=== PATIENT | female | born 1995 | race African-American/Black ===

== ENCOUNTER 2017-01-08 23:29 | Emergency (ER) | payer OTHER ==
[2017-01-09] MEDS ORDERED: IPRATROPIUM/ALBUTEROL 0.5-2.5 MG/3 ML AMPUL NEB ONE (02:36)
[2017-01-09] MEDS ORDERED: PREDNISONE 20 MG TABLET PO ONE (02:36)
--- NOTE | 2017-01-09 02:38 | ER Document Report ---
ED Respiratory Problem - General Chief Complaint: Cold Symptoms Stated Complaint: COLD LIKE SYMPTOMS Mode of Arrival: Ambulatory Information source: Patient TRAVEL OUTSIDE OF THE [place] IN LAST 30 DAYS: No - HPI Patient complains to provider of: Cough Notes: Patient arrives with complaints of runny nose, nasal congestion and cough for the last few days. She states that today she felt like she was wheezing. She denies any fever. She denies any lung history. She denies smoking. She has a history of seizures and is on Tegretol. She's had no seizure activity. She denies any nausea, vomiting, diarrhea. No chest pain or difficulty breathing. No rash. Nothing makes her symptoms better or worse. She has no other complaints at this time. - Related Data Allergies/Adverse Reactions: No Known Allergies Allergy (Unverified 01/08/17 23:34) Past Medical History - Social History Smoking Status: Unknown if Ever Smoked Family History: Reviewed & Not Pertinent Patient has suicidal ideation: No Patient has homicidal ideation: No Renal/ Medical History: Denies: Hx Peritoneal Dialysis Review of Systems - Review of Systems -: Yes All other systems reviewed and negative Physical Exam - Vital signs Vitals: Temp Pulse Resp BP Pulse Ox 98.5 F 110 H 15 129/79 H 100 01/08/17 23:34 01/08/17 23:34 01/08/17 23:34 01/08/17 23:34 01/08/17 23:34 - Notes Notes: GENERAL: alert, cooperative, nontoxic, no distress. HEAD: normocephalic, atraumatic EYES: conjunctiva pink without discharge, no external redness or swelling. EARS: no external swelling, no external redness, no mastoid redness, swelling, tenderness. Ear canals are clear without swelling or drainage. TMs pearly nichole , no redness, no bulging, normal landmarks, no perforation. NOSE: atraumatic, no external swelling. clear rhinorrhea noted. MOUTH/THROAT: mucous membranes moist and pink, posterior pharynx without erythema, swelling, exudate. No trismus or drooling. NECK: soft, supple, full range of motion, no meningismus. CHEST: no distress, expiratory wheezes noted throughout. Good air movement. No crackles. CARDIAC: regular rate and rhythm, no murmur, normal capillary refill, normal pulses. No peripheral edema noted. BACK: full range of motion, no CVA tenderness. EXTREMITIES: full range of motion of all extremities. No redness, no swelling. NEURO: alert and oriented 3, no focal deficits, full range of motion of all extremities. PYSCH: appropriate mood, affect. Patient is cooperative. SKIN: pink, warm, dry, no rash. Course - Re-evaluation Re-evalutation: 01/09/17 03:36 Patient states she is feeling significantly better after breathing treatments. Lung sounds improved. Patient likely has bronchitis. She'll be discharged home with prednisone, Tessalon, albuterol. Follow up if not better in the next 3-5 days, sooner for chest pain, difficult breathing, high fever, or any further concerns. The patient is noted to have elevated blood pressure during today's emergency department visit. The patient was informed of this finding. The patient was instructed that this may be related to pre-hypertension and requires further evaluation with a primary care provider. The patient has no hypertensive symptoms at this time. The patient's emergency department workup and current diagnosis were explained to the patient and or family. Follow-up instructions were provided. Medications if prescribed were discussed. Instructions for when to return to the emergency department including specific worrisome symptoms were discussed with the patient and/or family. - Vital Signs Vital signs: Temp Pulse Resp BP Pulse Ox 98.5 F 110 H 15 129/79 H 100 01/08/17 23:34 01/08/17 23:34 01/08/17 23:34 01/08/17 23:34 01/08/17 23:34 Discharge - Discharge Clinical Impression: Bronchitis Condition: Stable Disposition: HOME, SELF-CARE Instructions: Bronchitis ([facility]) Additional Instructions: Take medications as prescribed. Drink plenty of fluids. Follow-up with not better in 3-5 days, sooner for chest pain, difficulty breathing, high fever, or any further concerns. Your blood pressure was elevated during today's visit. Have this rechecked with your doctor. Prescriptions: Benzonatate [Tessalon Perle 100 mg Capsule] 100 mg PO Q8HP PRN #20 cap PRN Reason: Albuterol Sulfate [Proair HFA Inhalation Aerosol 8.5 gm MDI] 2 puff IH Q4 PRN # 1 mdi PRN Reason: Prednisone 60 mg PO DAILY #15 tablet Forms: Elevated Blood Pressure
[2017-01-09 03:55] VITALS: BP 112/65
== END 2017-01-09 03:58 | disposition home or self-care (01) ==
LOC: ER 23:29
DX: J40 Bronchitis, not specified as acute or chronic (principal); R03.0 Elevated blood-pressure reading, without diagnosis of hypertension
CPT/HCPCS: 94640; 99283; J7512; J7620

== ENCOUNTER 2018-07-29 14:31 | Emergency (ER) | payer BC, OTHER ==
[2018-07-29 14:38] VITALS: BP 127/59
--- NOTE | 2018-07-29 16:38 | ER Document Report ---
HPI - HPI Pain Level: Denies Notes: Patient is a 23-year-old female who presents for chief complaint of medication refill request. She needs to creams refilled that she takes for her eczema as well as one medication for her seizure disorder. Patient reports that she has a appointment scheduled with a new primary care provider for a few weeks from now. - CONSTITUTIONAL Constitutional: DENIES: Fever, Chills - EENT EENT: DENIES: Sore Throat, Ear Pain, Eye problems - NEURO Neurology: DENIES: Headache, Weakness, Vision blurred, Dizzinesss / Vertigo - CARDIOVASCULAR Cardiovascular: DENIES: Chest pain - RESPIRATORY Respiratory: DENIES: Trouble Breathing, Coughing - GASTROINTESTINAL Gastrointestinal: DENIES: Abdominal Pain, Black / Bloody Stools - MUSCULOSKELETAL Musculoskeletal: DENIES: Extremity pain Past Medical History - General Information source: Patient - Social History Smoking Status: Never Smoker Chew tobacco use (# tins/day): No Frequency of alcohol use: None Drug Abuse: None Family History: Reviewed & Not Pertinent Patient has suicidal ideation: No Patient has homicidal ideation: No - Medical History Medical History: Negative Renal/ Medical History: Denies: Hx Peritoneal Dialysis Surgical Hx: Negative - Immunizations Hx Diphtheria, Pertussis, Tetanus Vaccination: Yes Vertical Provider Document - CONSTITUTIONAL Notes: PHYSICAL EXAMINATION: GENERAL: Well-appearing, well-nourished and in no acute distress. HEAD: Atraumatic, normocephalic. EYES: Pupils equal round extraocular movements intact, conjunctiva are normal. ENT: Nares patent NECK: Normal range of motion LUNGS: No respiratory distress Musculoskeletal: Normal range of motion NEUROLOGICAL: Normal speech, normal gait. PSYCH: Normal mood, normal affect. SKIN: Warm, Dry, normal turgor, no rashes or lesions noted. - INFECTION CONTROL TRAVEL OUTSIDE OF THE [place] IN LAST 30 DAYS: No Course - Re-evaluation Re-evalutation: Medications refilled as per request. - Vital Signs Vital signs: Temp Pulse Resp BP Pulse Ox 97.9 F 85 20 127/59 H 100 07/29/18 14:37 07/29/18 14:37 07/29/18 14:37 07/29/18 14:37 07/29/18 14:37 Discharge - Discharge Clinical Impression: Medication refill Condition: Stable Disposition: HOME, SELF-CARE Additional Instructions: Your medications were refilled today. Please take medications exactly as prescribed. Keep the appointment you have to establish care with your new primary care provider. Prescriptions: Betamet Diprop/Prop Gly [Betamethasone Dp Aug 0.05% Ointment] 1 applic TP DAILY PRN #1 tube PRN Reason: Carbamazepine [Carbamazepine ER] 200 mg PO BID 30 Days #60 cpmp.12hr Triamcinolone Acetonide [Triderm] 454 gm TP DAILY #454 gm Referrals: ELIZABETH LACKEY PA-C [Primary Care Provider] - Follow up as needed
== END 2018-07-29 16:55 | disposition home or self-care (01) ==
LOC: ER 14:31
DX: Z76.0 Encounter for issue of repeat prescription (principal); L30.9 Dermatitis, unspecified; G40.909 Epilepsy, unspecified, not intractable, without status epilepticus
CPT/HCPCS: 99282

== ENCOUNTER 2019-10-26 14:59 | Emergency (ER) | payer BC, MEDICAID ==
[2019-10-26 15:34] VITALS: BP 106/59
--- NOTE | 2019-10-26 16:16 | ER Document Report ---
ED Skin Rash/Insect Bite/Abscs - General Chief Complaint: Skin Problem Stated Complaint: SKIN RASH Time Seen by Provider: 10/26/19 16:10 Primary Care Provider: ELIZABETH LACKEY PA-C [Primary Care Provider] - Follow up in 3-5 days Mode of Arrival: Ambulatory Information source: Patient Notes: 24-year-old female presented to ED for exacerbation of eczema. She states she has been to her doctor multiple times and has not referred her to dermatology as requested. She states the rash is much worse than her normal eczema. Her mother states that one time before when he got this bad the feltmaker and weigher in [place] gave her some Diflucan and it did help. I have discussed with mother that I will give the patient a dose of Diflucan and prednisone in the emergency room and give her a prescription for both for home use with 1 pill of Diflucan to take tomorrow. She has been instructed to follow-up with her primary care and find a feltmaker and weigher in [place] if she cannot get 1 in [place]. TRAVEL OUTSIDE OF THE [place] IN LAST 30 DAYS: No - HPI Patient complains to provider of: Skin rash/lesion Onset: Other Onset/Duration: Gradual - 2 weeks, Worse Quality of pain: Burning Severity: None Pain Level: 3 Skin Character: Erythema, Rash, Scales, Other - Thick scaly Quality of rash: Itchy, Painful Exacerbated by: Denies Relieved by: Denies Similar symptoms previously: Yes Recently seen / treated by doctor: Yes - Related Data Allergies/Adverse Reactions: No Known Allergies Allergy (Unverified 01/08/17 23:34) Past Medical History - General Information source: Patient - Social History Smoking Status: Never Smoker Cigarette use (# per day): No Smoking Education Provided: No Frequency of alcohol use: None Drug Abuse: None Lives with: Family Family History: Reviewed & Not Pertinent Patient has suicidal ideation: No Patient has homicidal ideation: No - Past Medical History Cardiac Medical History: Reports: None Pulmonary Medical History: Reports: Hx Asthma EENT Medical History: Reports: None Neurological Medical History: Reports: None Endocrine Medical History: Reports: None Renal/ Medical History: Reports: None Malignancy Medical History: Reports: None GI Medical History: Reports: None Musculoskeletal Medical History: Reports None Skin Medical History: Reports Hx Eczema Psychiatric Medical History: Reports: None Traumatic Medical History: Reports: None Infectious Medical History: Reports: None Surgical Hx: Negative Past Surgical History: Reports: None - Immunizations Immunizations up to date: Yes Hx Diphtheria, Pertussis, Tetanus Vaccination: Yes Review of Systems - Review of Systems Constitutional: No symptoms reported EENT: No symptoms reported Cardiovascular: No symptoms reported Respiratory: No symptoms reported Gastrointestinal: No symptoms reported Genitourinary: No symptoms reported Female Genitourinary: No symptoms reported Musculoskeletal: No symptoms reported Skin: Dryness, Rash Hematologic/Lymphatic: No symptoms reported Neurological/Psychological: No symptoms reported -: Yes All other systems reviewed and negative Physical Exam - Vital signs Vitals: Temp Pulse Resp BP Pulse Ox 97.9 F 109 H 13 106/59 L 96 10/26/19 15:33 10/26/19 15:10/26/19 15:10/26/19 15:10/26/19 15:33 Interpretation: Normal - General General appearance: Appears well, Alert - HEENT Head: Normocephalic, Atraumatic Eyes: Normal Pupils: PERRL - Respiratory Respiratory status: No respiratory distress Chest status: Nontender Breath sounds: Normal Chest palpation: Normal - Cardiovascular Rhythm: Regular Heart sounds: Normal auscultation Murmur: No - Abdominal Inspection: Normal Distension: No distension Bowel sounds: Normal Tenderness: Nontender Organomegaly: No organomegaly - Back Back: Normal, Nontender - Extremities General upper extremity: Normal inspection, Nontender, Normal color, Normal ROM, Normal temperature General lower extremity: Normal inspection, Nontender, Normal color, Normal ROM, Normal temperature, Normal weight bearing. No: Keo's sign - Neurological Neuro grossly intact: Yes Cognition: Normal Orientation: AAOx4 [place] Coma Scale Eye Opening: Spontaneous [place] Coma Scale Verbal: Oriented Calista Coma Scale Motor: Obeys Commands [place] Coma Scale Total: 15 Speech: Normal Motor strength normal: LUE, RUE, LLE, RLE Sensory: Normal - Psychological Associated symptoms: Normal affect, Normal mood - Skin Skin Temperature: Warm Skin Moisture: Dry Skin Color: Normal Location of irregularity: Generalized Character of irregularity: Erythematous Irregularity with: Scaling, Crusting, Inflammation Course - Vital Signs Vital signs: Temp Pulse Resp BP Pulse Ox 97.9 F 109 H 13 106/59 L 96 10/26/19 15:33 10/26/19 15:33 10/26/19 15:33 10/26/19 15:33 10/26/19 15:33 Discharge - Discharge Clinical Impression: Eczema generalized Condition: Stable Disposition: HOME, SELF-CARE Additional Instructions: Atopic Dematitis (Eczema) You have atopic dermatitis, commonly called eczema. This is a chronic allergic skin condition. It often occurs in families with asthma and hay fever. The skin develops patches of redness, itching and scaling. Eczema often affects the back of the neck, back of the legs, and front of the arms. In children it affects the back of the knees, front of the elbows, and the cheeks. Itching is the main symptom. Eczema can be triggered by dryness, heat, sweating, and detergents or soap. Scratching makes the rash worse. Food or skin allergy can cause eczema. Emotional stress may also be a factor. Symptoms may get better or worse spontaneously. Generally, the treatment consists of: (1) avoid hot-water baths, (2) avoid using soap on your skin, (3) apply a cortisone cream as needed, and (4) use antihistamines for itching. For severe episodes, oral cortisone medication may be required. Call the doctor if you get worse despite treatment, or if signs of infection occur -- such as spreading redness, red streaks, swollen glands, swelling, or fever. STEROID MEDICATION: You have been given a medicine of the cortisone/steroid class. This medication is used to control inflammation or allergy. It is usually only given for a short period of time, until the acute process subsides. There are usually no side effects from short-term use of cortisone-like medications. Some persons feel an increased sense of well-being and are not sleepy at bedtime. Long-term use of cortisone medications is best avoided, unless required for a severe condition. If your condition does not remit, or relapses after the course of corticosteroid medication, you should consult your physician. FLUCONAZOLE: Fluconazole (Diflucan) is an antifungal drug. It is useful for serious fungal infections, but is also excellent for oral or vaginal yeast infections. Diflucan interacts with some medicines. This is a concern if you are taking anticoagulants (such as Coumadin), phenytoin (Dilantin), cyclosporin, or oral hypoglycemics (such as tolbutamide, Orinase, glipizide, Glucotrol, glyburide, DiaBeta, Glynase, and Micronase). Be sure the doctor knows if you are taking one of these medicines. We don't know how Diflucan affects . If you are planning to become , discuss this with your doctor. Diflucan has few side effects. Minor side effects may include nausea, headache, or diarrhea. Call the doctor if you develop a skin rash, shortness of breath, or other new symptoms. FOLLOW-UP CARE: If you have been referred to a physician for follow-up care, call the physicians office for an appointment as you were instructed or within the next two days. If you experience worsening or a significant change in your symptoms, notify the physician immediately or return to the Emergency Department at any time for re-evaluation. Prescriptions: Prednisone [Deltasone 20 mg Tablet] 3 tab PO DAILY 4 Days tablet Fluconazole [Diflucan] 100 mg PO ONCE PRN #1 tablet PRN Reason: Referrals: ELIZABETH LACKEY PA-C [Primary Care Provider] - Follow up in 3-5 days
[2019-10-26] MEDS ORDERED: PREDNISONE 20 MG TABLET PO ONE (16:17)
[2019-10-26] MEDS ORDERED: FLUCONAZOLE 100 MG TABLET PO ONE (16:17)
== END 2019-10-26 16:32 | disposition home or self-care (01) ==
LOC: ER 14:59
DX: L30.9 Dermatitis, unspecified (principal); J45.909 Unspecified asthma, uncomplicated
CPT/HCPCS: 99283; J7512; J3490